=== PATIENT | female | born 1990 | race Caucasian/White ===

== ENCOUNTER 2017-05-13 19:41 | Emergency (ER) | END 2017-05-14 04:05 | disposition home or self-care (01) ==

== ENCOUNTER 2018-10-20 11:06 | Outpatient (CLI) | payer MEDICAID ==
[~2018-10-20 11:06] MED LIST: ACET500C5 PO; HDRP454O TOP; PNV11TAB PO
[2018-10-20 11:29] VITALS: BP 117/67; PULSE 101
--- NOTE | 2018-10-20 15:34 | TRIAGE ---
OB Triage Datetime Report Generated by CPN: 10/20/2018 15:33 Datetime: 10/20/2018 14:56 Stage of : OB Triage Datetime: 10/20/2018 14:40 Labor Evaluation Frequency: 0 Monitor Mode: External Pattern: Normal: <= 5 Contractions in 10 Minutes Resting Tone [place]: Relaxed Heart Rate FHR Baseline Rate: 135 Monitor Mode: External US Variability: Moderate 6-25 bpm Accelerations: 10X10 Decelerations: None Category: Category I Pain Assessment Pain Scale: 0 Pain Presence: None/Denies Pain Type: N/A Pain Goal: 3 Pain Relief Measures: Comfort Measures Datetime: 10/20/2018 13:45 Labor Evaluation Frequency: 0 Monitor Mode: External Pattern: Normal: <= 5 Contractions in 10 Minutes Resting Tone [place]: Relaxed Heart Rate FHR Baseline Rate: 135 Monitor Mode: External US Variability: Moderate 6-25 bpm Accelerations: 10X10 Decelerations: None Category: Category I Pain Assessment Pain Scale: 0 Pain Presence: None/Denies Pain Type: N/A Pain Goal: 3 Pain Relief Measures: Comfort Measures Datetime: 10/20/2018 12:44 Labor Evaluation Frequency: 0 Monitor Mode: External Pattern: Normal: <= 5 Contractions in 10 Minutes Resting Tone [place]: Relaxed Heart Rate FHR Baseline Rate: 135 Monitor Mode: External US Variability: Moderate 6-25 bpm Accelerations: 10X10 Decelerations: None Category: Category I Pain Assessment Pain Scale: 0 Pain Presence: None/Denies Pain Type: N/A Pain Goal: 3 Pain Relief Measures: Comfort Measures Datetime: 10/20/2018 11:43 Stage of : OB Triage Datetime: 10/20/2018 11:40 Stage of : OB Triage Datetime: 10/20/2018 11:26 Stage of : OB Triage Assessment Type: Triage Maternal Assessment Level of Consciousness: Keenly Alert, Responsive DTR's/Clonus: DTRs 2+; No Clonus Headache: Denies Blurred Vision: No Respiratory Effort: Unlabored; Regular Rhythm; Equal Expansion Breath Sounds, Left: Clear and Equal Breath Sounds, Right: Clear and Equal Nausea/Vomiting: Denies RUQ Epigastric Pain: Denies Facial Edema: None Temperature Route: Axillary Fall Risk Assessment History of Falling: (0) No Secondary Diagnosis: (0) No Ambulatory Aid: (0) Bedrest/Nurse Assist IV Therapy: (0) No Gait: (0) Normal/Bedrest/Immobile Mental Status: (0) Oriented to Own Ability Fall Score: 0 Fall Risk Score Definition: No Risk: No action required Labor Evaluation Frequency: 0 Monitor Mode: External Pattern: Normal: <= 5 Contractions in 10 Minutes Resting Tone [place]: Relaxed Heart Rate FHR Baseline Rate: 145 Monitor Mode: External US Variability: Moderate 6-25 bpm Pain Assessment Pain Scale: 0 Pain Presence: None/Denies Pain Type: N/A Pain Goal: 3 Pain Relief Measures: Comfort Measures Datetime: 10/20/2018 11:25 EGA: 31.2 Datetime: 10/20/2018 11:24 Time of Arrival: 10/20/2018 11:00 Arrived By: Ambulatory Arrived From: Home Chief Complaint: C/O DFM X 2 DAYS, DENIES BLEEDING, OR UC'S, SOME ABDOMINAL PAIN/ACHE UPON RISING Movement: Decreased Contractions: Denies/Absent Rupture of Membranes: Denies Vaginal Bleeding: None Vaginal Discharge: Denies Recent Sexual Intercouse: Denies Abdominal Trauma: Not Applicable Time Provider Notified: 10/20/2018 11:45 Provider Notified: JODI Initial Plan: MONITOR, BPP
--- NOTE | 2018-10-20 17:04 | PN ---
Triage Information Date/Time 10/20/1805/09/1700 Reason for visit: DFM Weeks of Gestation 31w2d /Para Objective Vital Signs Date Temp Pulse Resp B/P (MAP) Pulse Ox O2 O2 Flow FiO2 Time Delivery Rate 10/20/18 98.4 101 117/67 11:29 (84) Results/Medications Imaging Results BPP 10/26 SOPHIE 9.7 EFW 1858gm Disposition: Discharge Assessment/Plan A IUP 31w2d DFM P discharge home with RTH on tuesday for F/U DONALD BURCH MD Oct 20, 2018 17:04
== END 2018-10-20 15:12 | disposition home or self-care (01) ==
LOC: L-D 11:06 → OBT 11:06
PROVIDERS: ATTEND Obstetrics & Gynecology
DX: O36.8130 Decreased fetal movements, third trimester, not applicable or unspecified (principal); Z3A.31 31 weeks gestation of pregnancy
CPT/HCPCS: 76815; 76818; Z7500; G0463

== ENCOUNTER 2018-10-23 08:41 | Outpatient (CLI) | payer MEDICAID ==
[~2018-10-23] VITALS: Ht 162.6 cm; Wt 95.9 kg
[2018-10-23 08:59] VITALS: Ht 162.6 cm; Wt 95.9 kg
--- NOTE | 2018-10-23 11:35 | PN ---
Triage Information Date/Time Reason for visit: DFM Weeks of Gestation 31.3 /Para 1 Assessment/Plan presented for f.u decreased fm bpp 10/26 nst reactive follow up with primary ob MILESTONE,SARAH HENRIQUEZ Oct 23, 2018 11:35
--- NOTE | 2018-10-23 13:57 | TRIAGE ---
OB Triage Datetime Report Generated by CPN: 10/23/2018 13:57 Datetime: 10/23/2018 09:02 Maternal Assessment Level of Consciousness: Keenly Alert, Responsive DTR's/Clonus: DTRs 1+ Headache: Denies Blurred Vision: No Respiratory Effort: Unlabored Breath Sounds, Left: Clear and Equal Breath Sounds, Right: Clear and Equal Nausea/Vomiting: Denies RUQ Epigastric Pain: Denies Facial Edema: None Labor Evaluation Frequency: NONE Monitor Mode: External Resting Tone [place]: Relaxed Heart Rate FHR Baseline Rate: 130 Monitor Mode: External US Variability: Moderate 6-25 bpm Accelerations: 15X15 Decelerations: None Category: Category I Pain Assessment Pain Scale: 0 Pain Presence: None/Denies Pain Type: N/A Pain Goal: 3 Vaginal Exam Membrane Status: Intact Datetime: 10/23/2018 08:56 Stage of : OB Triage Datetime: 10/23/2018 08:55 Assessment Type: Triage Maternal Assessment Level of Consciousness: Keenly Alert, Responsive DTR's/Clonus: DTRs 2+; No Clonus Headache: Denies Blurred Vision: No Respiratory Effort: Unlabored; Regular Rhythm; Equal Expansion Breath Sounds, Left: Clear and Equal Breath Sounds, Right: Clear and Equal Nausea/Vomiting: Denies RUQ Epigastric Pain: Denies Lower Extremities Edema: None Degree: None Upper Extremities Edema: None Degree: None Facial Edema: None Fall Risk Assessment History of Falling: (0) No Secondary Diagnosis: (0) No Ambulatory Aid: (0) Bedrest/Nurse Assist IV Therapy: (0) No Gait: (0) Normal/Bedrest/Immobile Mental Status: (0) Oriented to Own Ability Fall Score: 0 Fall Risk Score Definition: No Risk: No action required Datetime: 10/23/2018 08:37 Time of Arrival: 10/23/2018 08:53 EGA: 31.3 Chief Complaint: NST AND BPP F/U FOR DECREASED MOVEMENT Movement: Present Contractions: Denies/Absent Rupture of Membranes: Denies Vaginal Discharge: Denies Recent Sexual Intercouse: Denies Abdominal Trauma: Not Applicable Additional Patient Complaints: NONE Time Provider Notified: 10/23/2018 09:00 Provider Notified: JODI Initial Plan: NST AND BPP Datetime: 10/20/2018 11:26 Fall Score: 0 Fall Risk Score Definition: No Risk: No action required Datetime: 10/20/2018 11:25 EGA: 31.0
== END 2018-10-23 11:00 | disposition home or self-care (01) ==
LOC: OBT 08:41 → L-D 08:42 → OBT 11:00
PROVIDERS: ATTEND Obstetrics & Gynecology
DX: O36.8130 Decreased fetal movements, third trimester, not applicable or unspecified (principal); Z3A.31 31 weeks gestation of pregnancy
CPT/HCPCS: 76818; Z7500; G0463